=== PATIENT | male | born 1980 | race Caucasian/White ===

== ENCOUNTER 2021-05-02 09:37 | Emergency (ER) | payer OTHER ==
[~2021-05-02] VITALS: Ht 165.1 cm; Wt 75.3 kg
[2021-05-02] MEDS ORDERED: BYSTOLIC10 MG PO (09:58)
[2021-05-02] MEDS ORDERED: IBUPROFEN IB200 MG PO (10:40)
[2021-05-02] MEDS ORDERED: CEFDINIR300 MG PO (10:40)
== END 2021-05-02 12:08 | disposition home or self-care (01) ==
LOC: FSED 10:18
DX: N50.812 Left testicular pain (principal); N45.1 Epididymitis; I10 Essential (primary) hypertension
CPT/HCPCS: 76870; 81003; 99283